=== PATIENT | female | born 1935 | race Caucasian/White ===

== ENCOUNTER → 2018-11-13 13:58 | Outpatient (CLI) | payer MEDICARE, OTHER, SELFPAY ==
--- NOTE | 2018-11-13 | DI.MRI.S_ITS ---
PROCEDURE: MR LUMBAR SPINE WO CON INDICATIONS: Low back and bilateral leg pain TECHNIQUE: Noncontrast sagittal T1 spin echo and T2 fast echo, sagittal STIR, axial T1 and T2 fast spin echo through the lumbar spine. In cases with scoliosis, additional coronal T2 fast spin echo may be performed. COMPARISON: [facility], MR, L-SPINE WITHOUT CONTRAST, 02/21/2017, 7:58. FINDINGS: Image quality: Excellent. Alignment and Curvature: There is grade 1 anterolisthesis of L4 on L5, unchanged from 2017 study. Minimal retrolisthesis at L1 to an L2-3 levels also seen, also unchanged from previous study. Bone Marrow: Marrow is of normal overall signal. No acute vertebral body compression fractures. Spinal Cord: Conus medullaris terminates at the T12-L1 level. Visualized cord demonstrates normal signal and size. Paraspinous Soft Tissues: No paravertebral masses. L1-L2: Moderate loss of disc height and disc desiccation. There is broad-based disc bulge and bilateral facet arthrosis. Mild central canal stenosis and right worse than left bilateral neuroforaminal narrowing is seen, unchanged from previous study. L2-L3: Moderate loss of disc height and disc desiccation. There is broad-based disc bulge with superimposed left lateral disc herniation and bilateral facet arthrosis causing mild to moderate central canal stenosis and left worse than right bilateral neuroforaminal narrowing. This is also unchanged from previous study.. L3-L4: Moderate loss of disc height and disc desiccation is seen. Diffuse disc bulge and bilateral facet arthrosis is seen with moderate central canal stenosis and moderate to severe bilateral neuroforaminal narrowing unchanged from previous study.. L4-L5: There is mild loss of disc height and moderate disc desiccation. Broad-based disc bulge and bilateral facet arthrosis is seen causing severe central canal stenosis and bilateral neuroforaminal narrowing, unchanged or slightly worsened compared to previous study. L5-S1: There is broad-based disc bulge and bilateral facet arthrosis causing mild central canal stenosis and mild to moderate bilateral neuroforaminal narrowing slightly worse on the left side. Finding is unchanged or slightly progressed since previous study. IMPRESSION: 1. Stable lumbar spine alignment. No acute compression fracture. 2. Degenerative disc bulge and bilateral facet arthrosis lower lumbar spine causing [id number] central canal stenosis and bilateral neuroforaminal narrowing most prominent at L4-5 level, slightly progressed since previous study in 2017. Dictated by: Prabhjot Jensen M.D. on 11/13/2018 at 16:08 Approved by: Prabhjot Jensen M.D. on 11/13/2018 at 16:13
== END ==
PROVIDERS: PCP Family Medicine; Visit Provider Physical Medicine & Rehabilitation Pain Medicine
DX: M51.16 Intervertebral disc disorders with radiculopathy, lumbar region (principal); M47.26 Other spondylosis with radiculopathy, lumbar region; M48.061 Spinal stenosis, lumbar region without neurogenic claudication; M54.5 Low back pain; M79.605 Pain in left leg; M79.604 Pain in right leg
CPT/HCPCS: 72148

== ENCOUNTER → 2019-10-07 13:24 | Outpatient (CLI) | payer MEDICARE, OTHER, SELFPAY ==
--- NOTE | 2019-10-07 13:31 | DI.ECHO.S_ITS ---
[facility] +---------+ : : [address] : [place] : : : : [id number] : : : : Phone: [phone]+ Echocardiogram Report + + :Name: DEE ENNIS Study Date: 10/07/2019 Height: 63 in : :[facility] Weight: 150 lb : : Gender: Female BSA: 1.7 m2 : :: 1935 Age: 84 yrs BP: 120/78 mmHg: :Reason For Study: MITRAL INSUFFICIENCY : :Ordering Physician: Mark : :Regino Performed By: Amy Hernandez : :Referring: MARK CHURCHILL : + + Interpretation Summary Left ventricular systolic function is low normal with an ejection fraction estimated to be 50-55% with no focal wall motion abnormalities and appears slightly less dynamic compared to the previous study. There is mild concentric left ventricular hypertrophy with diastolic parameters that suggest a relaxation abnormality of the left ventricle, consistent with probable normal filling pressures. There has been no significant change since the previous study. The right ventricle is normal in size and function and is unchanged compared to the previous study. Pulmonary artery pressures cannot be estimated because of the lack of a measurable TR jet velocity but the IVC suggests a CVP of around 3 mmHg. The left atrium is mildly dilated and is slightly smaller compared to the previous study. The right atrium is borderline dilated and is slightly larger. The atrial septum is aneurysmal with a likely trivial patent foramen ovale that is likely not hemodynamically significant. There is mild mitral regurgitation and trace tricuspid regurgitation. Both are less prominent compared to the previous study. There is no other significant valvular heart disease. The ascending aorta is mild-moderately enlarged and is unchanged compared to the previous study. Procedure: A two-dimensional transthoracic echocardiogram with color flow and Doppler was performed. The study quality was technically adequate. Comparison is made with the echocardiogram of 06/05/2016. The patient was in normal sinus rhythm during the exam. The patient had occasional PVCs during the exam. The patient had occasional PACs during the exam. Left Ventricle: The left ventricle is normal in size. There is mild concentric left ventricular hypertrophy. Left ventricular systolic function is low normal. The ejection fraction is estimated to be 50-55%. There are no focal wall motion abnormalities. This is slightly less dynamic compared to the previous study. Diastolic parameters suggest a relaxation abnormality of the left ventricle, consistent with probable normal filling pressures. There has been no significant change since the previous study. Right Ventricle: The right ventricle is normal in size and function. This is unchanged compared to the previous study. Atria: The left atrium is mildly dilated. This is slightly smaller compared to the previous study. The right atrium is borderline dilated. This is slightly larger compared to the previous study. 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 There is likely a trivial patent foramen ovale that is likely not hemodynamically significant and is best visualized in subcostal window. 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 Mitral Valve: There is mild mitral annular calcification. The mitral valve leaflets appear moderately thickened, but open well. The mitral valve leaflets are mildly calcified. There is mild mitral regurgitation. This is slightly less prominent compared to the previous study. Aortic Valve: The aortic valve is trileaflet. The aortic valve is slightly calcified. The aortic valve opens well. There is no aortic valve stenosis. There is trace aortic regurgitation. Tricuspid Valve: The tricuspid valve is normal in structure and function. There is trace tricuspid regurgitation. This is less prominent compared to the previous study. Pulmonary artery pressures cannot be estimated because of the lack of a measurable TR jet velocity but the IVC suggests a CVP of around 3 mmHg. Pulmonic Valve: The pulmonic valve is not well seen, but is grossly normal. There is trace pulmonic regurgitation. There is no other significant valvular heart disease. Great Vessels: The aortic root is normal size. The ascending aorta is mild- moderately enlarged. This is unchanged compared to the previous study. The aortic arch is normal in size. The IVC is of normal diameter and collapses greater than 50% with a sniff. This suggests a low right atrial pressure of 3 mm Hg. Pericardium/ Pleura There is no pericardial effusion. There has been no significant change since the previous study. MMode/2D Measurements & Calculations LVIDd: 3.3 cm LVOT diam: 2.1 cm LVIDs: 2.3 cm Ao root diam: 3.2 cm FS: 30.6 % asc Aorta Diam: 3.9 cm EPSS: 0.91 cm Ao Arch Diam (Prox Trans): 2.7 cm IVSd: 1.1 cm LVPWd: 1.1 cm LV bryant. diameter/BSA (cm/m^2): 1.9 LV sys. diameter/BSA (cm/m^2): 1.3 LA A2 area: 22.8 cm2 RA long axis: 4.9 cm LA A4 area: 18.7 cm2 RA area: 17.0 cm2 LA length (vol): 5.6 cm RA vol: 49.9 ml LA vol: 64.5 ml RA : 29.2 ml/m2 LA vol index: 37.7 ml/m2 IVC diam: 1.5 cm RVD1 (basal): 3.7 cm TAPSE: 2.4 cm Doppler Measurements & Calculations Ao V2 max: 107.3 cm/sec LVOT Max Shen: 84.1 cm/sec Ao V2 mean: 69.5 cm/sec LV V1 max P.8 mmHg Ao max P.6 mmHg LV V1 VTI: 18.5 cm Ao mean P.2 mmHg MIMI(I,D): 2.6 cm2 Ao V2 VTI: 25.0 cm MIMI(V,D): 2.8 cm2 sev ratio: 0.74 MIMI indexed to BSA (cm^2/m^2): 1.5 MV E max shen: 42.2 cm/sec PA V2 max: 54.0 cm/sec MV A max shen: 92.5 cm/sec PA V2 mean: 35.3 cm/sec MV E/A: 0.46 PA mean P.58 mmHg Med Peak E' Shen: 2.0 cm/sec PA pr(Accel): 29.2 mmHg E/E' med: 20.7 PA Accel Time: 0.12 sec Lat Peak E' Shen: 3.6 cm/sec E/E' lat: 11.6 E/e' average: 16.1 MV dec time: 0.29 sec MV P1/2t: 82.9 msec MV P1/2t max shen: 41.8 cm/sec SV(LVOT): 65.9 ml MVA(P1/2t): 2.7 cm2 Reading Physician:PM
== END ==
PROVIDERS: PCP Family Medicine; Referring Provider Physician Assistant Medical; Visit Provider Specialist
DX: I34.0 Nonrheumatic mitral (valve) insufficiency (principal); I25.3 Aneurysm of heart; I77.89 Other specified disorders of arteries and arterioles
CPT/HCPCS: 93306

== ENCOUNTER → 2020-10-27 13:52 | Outpatient (CLI) | payer MEDICARE, OTHER, SELFPAY ==
--- NOTE | 2020-10-27 | DI.MRI.S_ITS ---
PROCEDURE: MR LUMBAR SPINE WO CON INDICATIONS: SPINAL STENOSIS TECHNIQUE: Noncontrast sagittal T1 spin echo and T2 fast echo, sagittal STIR, axial T1 and T2 fast spin echo through the lumbar spine. In cases with scoliosis, additional coronal T2 fast spin echo may be performed. COMPARISON: [facility] [place], CR, XR LUMBAR SPINE WITH OLBIQUES PLUS FLEXION EXTENSION, 03/09/2020, 11:11. [facility], MR, MR LUMBAR SPINE WO CON, 11/13/2018, 14:41. [facility] [place], CR, SPINE LUMB MIN 4VW, 02/11/2017, 10:43. [facility], MR, L-SPINE WITHOUT CONTRAST, 02/21/2017, 7:58. FINDINGS: Image quality: This examination is limited by involuntary motion artifact. Alignment and Curvature: There is moderate dextroconvex thoracolumbar scoliosis. There is minimal retrolisthesis at T12-L1, with mild retrolisthesis at L1-L2 and L2-L3. Minimal retrolisthesis is seen at L3-L4. Mild grade 1 anterolisthesis is seen at L4-L5. Minimal anterolisthesis is seen at L5-S1. Bone Marrow: Marrow is of normal overall signal. No acute vertebral body compression fractures. Spinal Cord: Conus medullaris terminates at the L1 level. Visualized cord demonstrates normal signal and size. Paraspinous Soft Tissues: No paravertebral masses. Simple appearing liver cysts are seen posteriorly. T11-T12: Moderate loss of disc height is seen. Loss of disc signal is seen. Bridging endplate osteophytes are seen on the right. Mild to moderate disc bulge is seen. No neural foraminal narrowing is seen. No central canal narrowing. No significant progression compared to 2019. T12-L1: Moderate to severe loss of disc height and disc signal can be seen. Bridging endplate osteophytes are seen anteriorly and on the right. Moderate disc bulge is seen, which is eccentric to the right. Moderate facet joint hypertrophy is seen. There is [id number] right-sided and mild left-sided neural foraminal narrowing seen. Minimal central canal narrowing is seen. No significant change from the prior. L1-L2: Mild generalized disc bulge is seen. Mild facet joint hypertrophy is seen. Moderate bilateral neural foraminal narrowing is seen. Mild to moderate central canal narrowing is seen. Stable from the prior study. L2-L3: At least moderate loss of disc height and disc signal can be seen. Bridging endplate osteophytes are seen. Moderate generalized disc bulge is seen. Moderate facet joint hypertrophy is seen. There is moderate right-sided and moderate to severe left-sided neural foraminal narrowing seen. There is a degree of compression seen the exiting left L2 nerve root. Mild central canal narrowing is seen. No significant change from the prior. L3-L4: Moderate loss of disc height is seen. Loss of disc signal is seen. Moderate generalized disc bulge is seen. Moderate facet joint hypertrophy is seen. Moderate bilateral neural foraminal narrowing is seen. Moderate central canal narrowing is seen. When comparison is made with the prior examination, these findings are similar. L4-L5: Qxjk-hy-dcrnzepk loss disc height and disc signal can be seen. Moderate disc bulge is seen, with a central disc protrusion with disc uncovering. Prominent facet hypertrophy is seen at this level. There is moderate to severe bilateral neural foraminal narrowing seen. There is a degree of compression seen upon the exiting nerve roots. There is severe central canal narrowing seen at this level. When comparison is made with the prior examination, these findings are similar. L5-S1: Moderate to severe loss of disc height and disc signal can be seen at this level. Moderate generalized disc bulge is seen. At least moderate facet hypertrophy is seen. There is moderate to severe bilateral neural foraminal narrowing seen. There is a degree of compression seen upon the exiting nerve roots. Moderate central canal narrowing is seen. IMPRESSION: Multiple levels of lumbar spine degenerative change are seen, which are worst at the L4-L5 level. Compared to 2019, no significant progression can be seen. Moderate dextroconvex thoracolumbar scoliosis. Dictated by: Moody Mena M.D. on 10/27/2020 at 16:32 Approved by: Moody Mena M.D. on 10/27/2020 at 16:46
== END ==
PROVIDERS: PCP Family Medicine; Referring Provider Physical Medicine & Rehabilitation Pain Medicine; Visit Provider Physical Medicine & Rehabilitation Pain Medicine
DX: M48.062 Spinal stenosis, lumbar region with neurogenic claudication (principal); M47.816 Spondylosis without myelopathy or radiculopathy, lumbar region; M41.85 Other forms of scoliosis, thoracolumbar region
CPT/HCPCS: 72148